=== PATIENT | male | born 1935 | race Caucasian/White ===

== ENCOUNTER 2017-06-23 17:55 | Inpatient (IN) | payer OTHER, MEDICARE ==
--- NOTE | 2017-06-23 18:01 | EDPHY ---
HPI/HX/ROS/PE/MDM Narrative: CHIEF COMPLAINT: Low back pain, worsening dementia HISTORY OF PRESENT ILLNESS: The patient is an 81 y/o male with a history of probable dementia and type 2 diabetes complaining of worsening back pain, onset 1 month ago. In the last month his dementia has also progressed where he becomes more aggressive or violent. notes that he has good days and bad days. His appetite has also decreased in the last month. Per his , he was complaining of back pain all afternoon. He slipped on the stairs today, but was not complaining of any acute pain after the slip. He states "nothing is going on" and he is not in pain. No history of herniated discs. Takes Zyprexa and Zoloft for agitation. REVIEW OF SYSTEMS: Unobtainable from patient secondary to dementia. reports decreased appetite , no fever or vomiting. PAST MEDICAL HISTORY: Dementia, type 2 diabetes (on Metformin) SOCIAL HISTORY: at bedside, lives in [place], retired VITAL SIGNS: Reviewed by me GENERAL: Confused, labile, unable to follow simple commands consistently. Unable to provide a history. Well-developed, well-nourished, in no respiratory distress. HEENT: Atraumatic. Eyes: No icterus, no injection. Mouth: moist mucous membranes. No erythema or lesions. Neck: supple with no adenopathy. No meningismus. LUNGS: Clear to auscultation bilaterally, no wheezes, rhonchi or rales. CARDIAC: Regular rate and rhythm, no rubs, murmurs or gallops. ABDOMEN: Soft, nontender, nondistended, bowel sounds normal. BACK: No CVA tenderness. Erythema and early developing pressure ulcer over mid lumber vertebrae. EXTREMITIES: No trauma. No edema. Range of motion is normal throughout. NEURO: Alert and oriented to person only, moving all extremities x 4. SKIN: Warm and dry, no rash. PSYCHIATRIC: Intermittently agitated. Portions of this note were transcribed by a ophthalmic medical technician. I personally performed a history, physical exam, medical decision making, and confirmed accuracy of information the transcribed note. ED Course: The patient is an 81 y/o male with a history of dementia and type 2 diabetes presenting with worsening lower back pain and dementia for the past month. During my exam he is intermittently agitated and tearful. Denies any pain. Chest x-ray, lumbar spine x-ray, EKG, and labs ordered. Patient not cooperative with evaluation. Discussed situation at length with ; she is in agreement to provide sedation if needed for labs, testing. 1mg IV Ativan and 5mg PO Zyprexa administered. 1845: 12-LEAD EKG: Please see the full report in [facility]. My interpretation: Sinus rhythm with a rate of 72, LBBB 1909: Head CT ordered. 1929: I reviewed patient's lumbar x-ray, there are some old compression fractures, worse at L1-3, with some spurring. No acute fractures identified by myself. Radiology report pending. 1939: Spoke with Dr. Keller, radiologist, regarding this patient's head CT, there are no acute findings. 1948: Reassessed patient and discussed imaging and laboratory findings with his family. Patients creatinine is elevated and hyaline casts in urine. Suspect acute renal insufficiency. The family is concerned about caring for him at home as his symptoms have worsened over the last month, with increased agitation and lashing out at his today. They fear for her safety as well as the patients safety. Patient will be admitted for further evaluation of his AMS, aggressive behavior , and complaints of back pain. Daughter reports remote history of prostate cancer treated with radiation seeds. May need CT scanning if back pain persists. He will need to be admitted, his family is comfortable with this plan. 1L IV NS administered. 2003: Consulted with hospitalist service, Dr. Pugh accepts admission of this patient. MDM: Diff dx considered included but not limited to infection, cardiac causes, fracture, urinary tract infection, dementia, stroke, intracranial hemorrhage. - Data Points Imaging Results: Imaging Impressions Chest X-Ray 06/23/17 18:22 Impression: Mild density in the left lower lobe. Differential includes early pneumonia versus atelectasis. Head CT 06/23/17 19:09 Impression: Atrophy and microvascular ischemic disease. Findings and recommendations discussed with Bethanie Burr MD at 7:40 PM hour , 06/23/2017. Final report concurs with initial preliminary interpretation. Imaging: Discussed imaging studies w/ backpackers manager Radiologist, I viewed and interpreted images myself Laboratory Results: Laboratory Results 06/23/17 18:30 06/23/17 18:30 03/01/18 03/01/18 03/01/18 19:47 18:30 18:30 WBC 8.28 10^3/uL 10^3/uL (3.80-9.50) RBC 3.96 10^6/uL L 10^6/uL (4.40-6.38) Hgb 12.9 g/dL L g/dL (13.7-17.5) Hct 35.7 % L % (40.0-51.0) MCV 90.2 fL fL (81.5-99.8) MCH 32.6 pg pg (27.9-34.1) MCHC 36.1 g/dL g/dL (32.4-36.7) RDW 12.7 % % (11.5-15.2) Plt Count 228 10^3/uL 10^3/uL (150-400) MPV 9.0 fL fL (8.7-11.7) Neut % (Auto) 65.7 % % (39.3-74.2) Lymph % (Auto) 23.8 % % (15.0-45.0) Major % (Auto) 8.6 % % (4.5-13.0) Eos % (Auto) 1.0 % % (0.6-7.6) Baso % (Auto) 0.5 % % (0.3-1.7) Nucleat RBC Rel Count 0.0 % % (0.0-0.2) Absolute Neuts (auto) 5.45 10^3/uL 10^3/uL (1.70-6.50) Absolute Lymphs (auto) 1.97 10^3/uL 10^3/uL (1.00-3.00) Absolute Monos (auto) 0.71 10^3/uL 10^3/uL (0.30-0.80) Absolute Eos (auto) 0.08 10^3/uL 10^3/uL (0.03-0.40) Absolute Basos (auto) 0.04 10^3/uL 10^3/uL (0.02-0.10) Absolute Nucleated RBC 0.00 10^3/uL 10^3/uL (0-0.01) Immature Gran % 0.4 % % (0.0-1.1) Immature Gran # 0.03 10^3/uL 10^3/uL (0.00-0.10) Sodium 139 mEq/L mEq/L (135-145) Potassium 4.4 mEq/L mEq/L (3.5-5.2) Chloride 105 mEq/L mEq/L (97-110) Carbon Dioxide 19 mEq/l L mEq/l (22-31) Anion Gap 15 mEq/L mEq/L (8-16) BUN 29 mg/dL H mg/dL (7-23) Creatinine 1.5 mg/dL H mg/dL (0.7-1.3) Estimated GFR 45 Glucose 102 mg/dL H mg/dL (70-100) Calcium 10.0 mg/dL mg/dL (8.5-10.4) Total Bilirubin 0.9 mg/dL mg/dL (0.1-1.4) Conjugated Bilirubin 0.4 mg/dL mg/dL (0.0-0.5) Unconjugated Bilirubin 0.5 mg/dL mg/dL (0.0-1.1) AST 36 IU/L IU/L (17-59) ALT 37 IU/L IU/L (21-72) Alkaline Phosphatase 71 IU/L IU/L (38-126) Troponin I < 0.012 ng/mL ng/mL (0.000-0.034) Total Protein 6.8 g/dL g/dL (6.3-8.2) Albumin 4.4 g/dL g/dL (3.5-5.0) Lipase 158 IU/L IU/L (23-300) Urine Color YELLOW Urine Appearance HAZY Urine pH 5.0 (5.0-7.5) Ur Specific [place] 1.024 (1.002-1.030) Urine Protein 1+ H (NEGATIVE) Urine Ketones NEGATIVE (NEGATIVE) Urine Blood NEGATIVE (NEGATIVE) Urine Nitrate NEGATIVE (NEGATIVE) Urine Bilirubin NEGATIVE (NEGATIVE) Urine Urobilinogen 2.0 EU H EU (0.2-1.0) Ur Leukocyte Esterase NEGATIVE (NEGATIVE) Urine RBC 1-3 /hpf /hpf (0-3) Urine WBC 3-5 /hpf H /hpf (0-3) Ur Epithelial Cells TRACE /lpf /lpf (NONE-1+) Hyaline Casts 15-25 /lpf H /lpf (0-1) Urine Mucus 1+ /lpf /lpf (NONE-1+) Urine Glucose NEGATIVE (NEGATIVE) Medications Given: Sodium Chloride (Ns) 1,000 mls @ 75 mls/hr IV CONT HAM Stop: 12/20/17 21:29 Last Admin: 06/23/17 22:07 Dose: 1,000 mls Melatonin (Melatonin) 3 mg PO HS [facility] Stop: 12/20/17 20:59 Last Admin: 06/23/17 22:08 Dose: Not Given Sertraline HCl (Zoloft) 50 mg PO HS [facility] Stop: 12/20/17 20:59 Last Admin: 06/23/17 22:08 Dose: Not Given Discontinued Medications Sodium Chloride (Ns) 1,000 mls @ 0 mls/hr IV ONCE ONE PRN Reason: Wide Open Stop: 06/23/17 20:19 Last Admin: 06/23/17 20:21 Dose: 1,000 mls Lorazepam (Ativan Injection) 1 mg IVP EDNOW ONE Stop: 06/23/17 18:24 Last Admin: 06/23/17 18:30 Dose: 1 mg Olanzapine (Zyprexa Zydis) 5 mg PO EDNOW ONE Stop: 06/23/17 18:24 Last Admin: 06/23/17 18:31 Dose: 5 mg General Time Seen by Provider: 06/23/17 18:00 Initial Vital Signs: Initial Vital Signs Temperature (C) 36.3 C 06/23/17 18:01 Heart Rate 75 06/23/17 18:01 Respiratory Rate 18 06/23/17 18:01 Blood Pressure 120/79 06/23/17 18:01 O2 Sat (%) 93 06/23/17 18:01 O2 Delivery Mode Nasal Cannula O2 (L/minute) 2 Allergies/Adverse Reactions: No Known Allergies Allergy (Verified 06/23/17 20:28) Home Medications: Medication Instructions Recorded Atorvastatin Calcium [Lipitor 10 10 mg PO DAILY 06/23/17 mg (*)] Doxylamine Succinate [Unisom] 25 mg PO HS PRN 06/23/17 Levothyroxine [Synthroid 50 mcg 50 mcg PO DAILY06 06/23/17 (*)] Lisinopril/Hctz 20/12.5MG 1 ea PO DAILY 06/23/17 [Zestoretic/Prinzide 20/12.5MG (*)] Melatonin [Melatonin 3 MG (*)] 3 mg PO HS 06/23/17 OLANZapine [ZyPREXA 2.5 mg (*)] 2.5 mg PO HS 06/23/17 Sertraline HCl [Zoloft 50mg (*)] 50 mg PO HS 06/23/17 metFORMIN HCL [Glucophage 500 mg 750 mg PO BIDMEAL 06/23/17 (*)] Departure - Departure Disposition: [facility] Clinical Impression: Agitation, Renal insufficiency Dementia Qualifiers: Dementia type: unspecified type Dementia behavioral disturbance: without behavioral disturbance Qualified Code(s): F03.90 - Unspecified dementia without behavioral disturbance Back pain Qualifiers: Back pain location: low back pain Chronicity: acute Back pain laterality: unspecified Sciatica presence: without sciatica Qualified Code(s): M54.5 - Low back pain Condition: Fair Report Scribed for: Bethanie Burr Report Scribed by: Marce Walter Date of Report: 06/23/17 Time of Report: 18:01
[2017-06-23] MEDS ORDERED: LORazepam 2 MG/ML INJ IVP ONE (18:23)
[2017-06-23] MEDS ORDERED: OLANZapine DISINTEGR 5 MG TAB PO ONE (18:23)
[2017-06-23 18:36] LABS: PLATELET COUNT 228 10^3/uL (150-400)
--- NOTE | 2017-06-23 18:50 | CPEKG ---
Heart Rate: 72 RR Interval: 833 P-R Interval: 152 QRSD Interval: 142 QT Interval: 444 QTC Interval: 486 P [place]: 42 QRS [place]: -14 T Wave [place]: 120 EKG Severity - ABNORMAL ECG - EKG Impression: SINUS RHYTHM EKG Impression: LEFT BUNDLE BRANCH BLOCK Electronically Signed By: Bethanie Burr 23-Jun-2017 21:22:02
[2017-06-23] MEDS ORDERED: NS 1,000 ML IV ONE (20:18)
[2017-06-23] MEDS ORDERED: OLANZapine 2.5 MG TAB PO SCH (21:00)
[2017-06-23] MEDS ORDERED: traMADol 50 MG TAB PO PRN (21:19)
[2017-06-23] MEDS ORDERED: ONDANSETRON 4 MG/2 ML VIAL IVP PRN (21:20)
[2017-06-23] MEDS ORDERED: ONDANSETRON DISINTEGRATING 4 MG TAB PO PRN (21:20)
[2017-06-23] MEDS ORDERED: NS 1,000 ML IV SCH (21:30)
--- NOTE | 2017-06-23 21:31 | PDGENHP ---
History and Physical - Chief Complaint agitation - History of Present Illness The patient is an 81 y/o male with a history of probable dementia over the past 2 years which has been progressive to the point of increasing agitation and violence over the past month. The patient lives with his at home. She has been unable to take care of his and she reports that he gets violent when he gets agitated and confused. In addition he has a hx of neck and low back pain which appears to have worsened over the past month. Agitation has been an issue in the past and and takes Zyprexa and Zoloft. In the E.D a head CT, lumbar spine did not show acute disease. The lumbar spine did show chronic compression fractures. He was given Zyprexa and Ativan in the E.D. and currently he is sleeping. 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 FmHx: parents are History Information - Allergies/Home Medication List Allergies/Adverse Reactions: No Known Allergies Allergy (Verified 06/23/17 20:28) Home Medications: Atorvastatin Calcium [Lipitor 10 mg (*)] 10 mg PO DAILY 06/23/17 [Last Taken 05/12] Doxylamine Succinate [Unisom] 25 mg PO HS PRN 06/23/17 [Last Taken 06/22/17] Levothyroxine [Synthroid 50 mcg (*)] 50 mcg PO DAILY06 06/23/17 [Last Taken 05/12] Lisinopril/Hctz 20/12.5MG [Zestoretic/Prinzide 20/12.5MG (*)] 1 ea PO DAILY 05/12 [Last Taken 06/23/17] Melatonin [Melatonin 3 MG (*)] 3 mg PO HS 06/23/17 [Last Taken 06/22/17] OLANZapine [ZyPREXA 2.5 mg (*)] 2.5 mg PO HS 06/23/17 [Last Taken 06/22/17] Sertraline HCl [Zoloft 50mg (*)] 50 mg PO HS 06/23/17 [Last Taken 06/22/17] metFORMIN HCL [Glucophage 500 mg (*)] 750 mg PO BIDMEAL 06/23/17 [Last Taken 05/12] I have personally reviewed and updated: medical history, social history - Social History Smoking Status: Former smoker Review of Systems Review of Systems: Physical Exam Physical Exam: Temp Pulse Resp BP Pulse Ox 36.6 C 55 L 16 109/66 100 06/23/17 21:10 06/23/17 21:10 06/23/17 21:10 06/23/17 21:10 06/23/17 21:10 O2 (L/minute) 2 Constitutional: no apparent distress Eyes: PERRL, EOMI Ears, Nose, Mouth, Throat: dry mucous membranes Cardiovascular: regular rate and rhythym, No edema Respiratory: no respiratory distress, no rales or rhonchi Gastrointestinal: normoactive bowel sounds, soft, non-tender abdomen Skin: warm Lymph, Heme, Immunologic: No no cervical LAD Lab Data & Imaging Review 06/23/17 18:30 06/23/17 18:30 WBC 8.28 10^3/uL (3.80-9.50) 06/23/17 18:30 RBC 3.96 10^6/uL (4.40-6.38) L 06/23/17 18:30 Hgb 12.9 g/dL (13.7-17.5) L 06/23/17 18:30 Hct 35.7 % (40.0-51.0) L 06/23/17 18:30 MCV 90.2 fL (81.5-99.8) 06/23/17 18:30 MCH 32.6 pg (27.9-34.1) 06/23/17 18:30 MCHC 36.1 g/dL (32.4-36.7) 06/23/17 18:30 RDW 12.7 % (11.5-15.2) 06/23/17 18:30 Plt Count 228 10^3/uL (150-400) 06/23/17 18:30 MPV 9.0 fL (8.7-11.7) 06/23/17 18:30 Neut % (Auto) 65.7 % (39.3-74.2) 06/23/17 18:30 Lymph % (Auto) 23.8 % (15.0-45.0) 06/23/17 18:30 [place] % (Auto) 8.6 % (4.5-13.0) 06/23/17 18:30 Eos % (Auto) 1.0 % (0.6-7.6) 06/23/17 18:30 Baso % (Auto) 0.5 % (0.3-1.7) 06/23/17 18:30 Nucleat RBC Rel Count 0.0 % (0.0-0.2) 06/23/17 18:30 Absolute Neuts (auto) 5.45 10^3/uL (1.70-6.50) 06/23/17 18:30 Absolute Lymphs (auto) 1.97 10^3/uL (1.00-3.00) 06/23/17 18:30 Absolute Monos (auto) 0.71 10^3/uL (0.30-0.80) 06/23/17 18:30 Absolute Eos (auto) 0.08 10^3/uL (0.03-0.40) 06/23/17 18:30 Absolute Basos (auto) 0.04 10^3/uL (0.02-0.10) 06/23/17 18:30 Absolute Nucleated RBC 0.00 10^3/uL (0-0.01) 06/23/17 18:30 Immature Gran % 0.4 % (0.0-1.1) 06/23/17 18:30 Immature Gran # 0.03 10^3/uL (0.00-0.10) 06/23/17 18:30 Sodium 139 mEq/L (135-145) 06/23/17 18:30 Potassium 4.4 mEq/L (3.5-5.2) 06/23/17 18:30 Chloride 105 mEq/L (97-110) 06/23/17 18:30 Carbon Dioxide 19 mEq/l (22-31) L 06/23/17 18:30 Anion Gap 15 mEq/L (8-16) 06/23/17 18:30 BUN 29 mg/dL (7-23) H 06/23/17 18:30 Creatinine 1.5 mg/dL (0.7-1.3) H 06/23/17 18:30 Estimated GFR 45 06/23/17 18:30 Glucose 102 mg/dL (70-100) H 06/23/17 18:30 Calcium 10.0 mg/dL (8.5-10.4) 06/23/17 18:30 Total Bilirubin 0.9 mg/dL (0.1-1.4) 06/23/17 18:30 Conjugated Bilirubin 0.4 mg/dL (0.0-0.5) 06/23/17 18:30 Unconjugated Bilirubin 0.5 mg/dL (0.0-1.1) 06/23/17 18:30 AST 36 IU/L (17-59) 06/23/17 18:30 ALT 37 IU/L (21-72) 06/23/17 18:30 Alkaline Phosphatase 71 IU/L (38-126) 06/23/17 18:30 Troponin I < 0.012 ng/mL (0.000-0.034) 06/23/17 18:30 Total Protein 6.8 g/dL (6.3-8.2) 06/23/17 18:30 Albumin 4.4 g/dL (3.5-5.0) 06/23/17 18:30 Lipase 158 IU/L (23-300) 06/23/17 18:30 Urine Color YELLOW 06/23/17 19:47 Urine Appearance HAZY 06/23/17 19:47 Urine pH 5.0 (5.0-7.5) 06/23/17 19:47 Ur Specific [place] 1.024 (1.002-1.030) 06/23/17 19:47 Urine Protein 1+ (NEGATIVE) H 06/23/17 19:47 Urine Ketones NEGATIVE (NEGATIVE) 06/23/17 19:47 Urine Blood NEGATIVE (NEGATIVE) 06/23/17 19:47 Urine Nitrate NEGATIVE (NEGATIVE) 06/23/17 19:47 Urine Bilirubin NEGATIVE (NEGATIVE) 06/23/17 19:47 Urine Urobilinogen 2.0 EU (0.2-1.0) H 06/23/17 19:47 Ur Leukocyte Esterase NEGATIVE (NEGATIVE) 06/23/17 19:47 Urine RBC 1-3 /hpf (0-3) 06/23/17 19:47 Urine WBC 3-5 /hpf (0-3) H 06/23/17 19:47 Ur Epithelial Cells TRACE /lpf (NONE-1+) 06/23/17 19:47 Hyaline Casts 15-25 /lpf (0-1) H 06/23/17 19:47 Urine Mucus 1+ /lpf (NONE-1+) 06/23/17 19:47 Urine Glucose NEGATIVE (NEGATIVE) 06/23/17 19:47 Assessment & Plan Assessment: Agitation (Acute) Back pain (Acute) Dementia (Acute) Renal insufficiency (Acute) HTN Hypothyroidism Plan: -Admission -provide additional IVF -Check TSH -hold Zyprexa tonight -Hold Lisinopril/HCTZ -PT/OT -Pain mgmt -SCD's -DNR, confirmed with family -Will need placement
[2017-06-23] MEDS: MELATONIN 3 MG TAB PO SCH (22:08)
[2017-06-23] MEDS: SERTRALINE HCL 50 MG TAB PO SCH (22:08)
[2017-06-24] MEDS: LEVOTHYROXINE 50 MCG TAB PO SCH (05:47)
[2017-06-24] MEDS: HALOPERIDOL 1 MG TAB PO PRN (05:47)
[2017-06-24 06:24] LABS: PLATELET COUNT 192 10^3/uL (150-400)
[2017-06-24] MEDS: ATORVASTATIN CALCIUM 10 MG TAB PO SCH (13:21)
--- NOTE | 2017-06-24 14:05 | PDMN ---
Medical Necessity Medical necessity: Pt meets IP criteria per MD; est los >2 mn for eval/tx of back pain & progressive dementia w/increasing agitation & violence; pt unable to care for self; admit for further monitoring, med management, IVFs, therapies & dc planning; comorbid advanced age & diabetes per H&P & order 06/23/17
--- NOTE | 2017-06-24 14:43 | HOSPPROG ---
Hospitalist Progress Note Assessment/Plan: 81y male brought to hospital due to agitation and confusion. First encounter, chart reviewed. D/W CM. #Agitation (Acute) -per new -unclear etiol -zyprexa on hold #Back pain (Acute) -no current complaints #Dementia (Acute) -baseline unclear -will need further evaluation -no signs of infection #Renal insufficiency (Acute) -dehydration -responded to iv hydration #HTN -stable -home meds on hold # Hypothyroidism -tsh stable #Dispo -unclear, PT/OT eval -needs further evaluation -unsafe to go home currently -DNR -Will need placement, reviewed with CM Subjective: Up walking. Confused. Objective: Vital Signs Temp Pulse Resp BP Pulse Ox 36.4 C 79 16 117/70 95 06/24/17 12:00 06/24/17 12:00 06/24/17 12:00 06/24/17 12:00 06/24/17 12:00 Laboratory Results 06/24/17 05:46 06/24/17 05:46 06/23/17 06/24/17 06/25/17 05:59 05:59 05:59 Intake Total 780 Output Total 425 Balance 355 - Physical Exam Constitutional: appears nourished, not in pain, chronically ill appearing Eyes: PERRL, anicteric sclera, EOMI Ears, Nose, Mouth, Throat: moist mucous membranes, hearing normal, ears appear normal Cardiovascular: regular rate and rhythym, No JVD, No edema Respiratory: no respiratory distress, no rales or rhonchi, clear to auscultation Gastrointestinal: normoactive bowel sounds, No tenderness, No ascites Skin: warm, normal color, No mottled Musculoskeletal: normal joint ROM, no joint effusions, generalized weakness Neurologic: No AAOx3 Psychiatric: anxious, poor memory, No thought process linear ICD10 Worksheet Patient Problems: Problems Problem Status Onset Dementia Acute Agitation Acute Back pain Acute Renal insufficiency Acute
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
[2017-06-24] MEDS: SERTRALINE HCL 50 MG TAB PO SCH (20:23)
[2017-06-24] MEDS: MELATONIN 3 MG TAB PO SCH (20:23)
[2017-06-24] MEDS: OLANZapine 2.5 MG TAB PO SCH (20:23)
[2017-06-25] MEDS: LEVOTHYROXINE 50 MCG TAB PO SCH (06:52)
[2017-06-25] MEDS: ATORVASTATIN CALCIUM 10 MG TAB PO SCH (08:24)
--- NOTE | 2017-06-25 10:07 | HOSPPROG ---
Hospitalist Progress Note Assessment/Plan: 81y male brought to hospital due to agitation and confusion. D/W CM. #Agitation (Acute) -per new -unclear etiol -zyprexa on hold #Back pain (Acute) -no current complaints #Dementia (Acute) -baseline unclear -will need further evaluation -no signs of infection #Renal insufficiency (Acute) -dehydration -responded to iv hydration #HTN -stable -home meds on hold # Hypothyroidism -tsh stable #Dispo -to [facility] in am -PT/OT -unsafe to go home currently -DNR Subjective: Up walking. Confused. Objective: Vital Signs Temp Pulse Resp BP Pulse Ox 36.3 C 86 14 130/90 H 95 06/25/17 06:50 06/25/17 06:50 06/25/17 06:50 06/25/17 06:50 06/25/17 06:50 Laboratory Results 06/24/17 05:46 06/25/17 07:26 06/24/17 06/25/17 06/26/17 05:59 05:59 05:59 Intake Total 780 500 Output Total 425 Balance 355 500 - Physical Exam Constitutional: appears nourished, chronically ill appearing Eyes: PERRL, anicteric sclera Ears, Nose, Mouth, Throat: moist mucous membranes, hearing normal Cardiovascular: regular rate and rhythym, No JVD Respiratory: no respiratory distress, reduced air movement Gastrointestinal: No tenderness, No ascites Skin: warm, normal color Musculoskeletal: full muscle strength, normal joint ROM Neurologic: No AAOx3 Psychiatric: poor insight, poor judgement, poor memory, No thought process linear ICD10 Worksheet Patient Problems: Problems Problem Status Onset Dementia Acute Agitation Acute Back pain Acute Renal insufficiency Acute
[2017-06-25] MEDS ORDERED: OLANZapine DISINTEGR 5 MG TAB PO ONE (10:19)
[2017-06-25] MEDS: HALOPERIDOL 1 MG TAB PO PRN (14:28)
[2017-06-25] MEDS: metFORMIN HCL 500 MG TAB PO SCH (18:10)
[2017-06-25] MEDS: OLANZapine 2.5 MG TAB PO SCH (21:16)
[2017-06-25] MEDS: SERTRALINE HCL 50 MG TAB PO SCH (21:16)
[2017-06-25] MEDS: MELATONIN 3 MG TAB PO SCH (21:16)
[2017-06-26] MEDS: ACETAMINOPHEN 325 MG TAB PO PRN ×2 (01:06→07:53)
[2017-06-26] MEDS: HALOPERIDOL 1 MG TAB PO PRN (02:00)
[2017-06-26] MEDS: LEVOTHYROXINE 50 MCG TAB PO SCH (03:38)
[2017-06-26] MEDS: ATORVASTATIN CALCIUM 10 MG TAB PO SCH (07:43)
[2017-06-26] MEDS: metFORMIN HCL 500 MG TAB PO SCH (07:53)
[2017-06-26 08:56] VITALS: BP 125/69; PULSE 85; RESP 16; TEMP 97.8; O2SAT 92
--- NOTE | 2017-06-26 09:01 | PDIAF ---
- Diagnosis Diagnosis: AMS Code Status: Do Not Resuscitate - Medication Management Discharge Medications: Medications to Continue on Transfer Atorvastatin Calcium [Lipitor 10 mg (*)] 10 mg PO DAILY 06/23/17 [Last Taken 05/12] Levothyroxine [Synthroid 50 mcg (*)] 50 mcg PO DAILY06 06/23/17 [Last Taken 05/12] Melatonin [Melatonin 3 MG (*)] 3 mg PO HS 06/23/17 [Last Taken 06/22/17] OLANZapine [ZyPREXA 2.5 mg (*)] 2.5 mg PO HS 06/23/17 [Last Taken 06/22/17] Sertraline HCl [Zoloft 50mg (*)] 50 mg PO HS 06/23/17 [Last Taken 06/22/17] metFORMIN HCL [Glucophage 500 mg (*)] 750 mg PO BIDMEAL 06/23/17 [Last Taken 05/12] Acetaminophen [Tylenol 325mg (*)] 650 mg PO Q4HRS PRN tab 06/26/17 [Last Taken Unknown] Haloperidol [Haldol 1 MG (*)] 1 mg PO Q6H PRN tab 06/26/17 [Last Taken Unknown] traMADol [Ultram 50 mg (*)] 25 mg PO Q6HRS PRN tab 06/26/17 [Last Taken Unknown ] Discharge Medications: Refer to the Discharge Home Medication list for PRN reason. PICC Care - Routine: N/A - Orders Services needed: Registered Nurse, Physical Therapy, Occupational Therapy Diet Recommendation: no restrictions on diet - Follow Up Care Current Providers and Referrals: Anant Mejia MD [Primary Care Provider] - As per Instructions
--- NOTE | 2017-06-26 09:48 | ASMTCMCOM ---
CM Note CM Note Notes: Patient medicallly stable for discharge to [facility] this am. Richard Pauer - 3P transportation arranged for 10:30 am and sister can ride with the patient. aware payment their responsibility, attempted to call [facility] 3 times but no answer. Final orders via allscripts.CM available should other needs arise. Date Signed: 06/26/2017 09:47 AM Electronically Signed By:Elena Mclaughlin RN
--- NOTE | 2017-06-26 09:49 | ASMTLACE ---
LACE Length of stay for Answers: 3 days current admission Acuity / Level of Answers: Yes Care: Did the patient have an inpatient admission? Comorbidities - select Answers: Dementia all that apply Diabetes (uncontrolled or controlled) # of Emergency department Answers: 1-2 visits in the last 6 months Score: 11 Date Signed: 06/26/2017 09:49 AM Electronically Signed By:Elena Mclaughlin RN
--- NOTE | 2017-06-26 14:16 | GDS ---
[f rep st] DISCHARGE SUMMARY DISCHARGE DIAGNOSES: 1. Agitation. 2. Confusion. 3. Dementia. 4. Renal insufficiency. 5. Hypertension. 6. Hypothyroidism. STUDIES AND PROCEDURES: 1. CT of the head. 2. Lumbar spine x-ray. PHYSICAL EXAM: GENERAL: The patient is alert. VITAL SIGNS: Afebrile at 36.6, pulse is 85, respira tory rate 16, blood pressure is 125/69. He is saturating 92% on room air. I have seen and evaluated the patient on the day of discharge. HOSPITAL COURSE: The patient is an 81-year-old male who presented to the emergency room with complai nts of confusion. He was evaluated and diagnosed with: 1. Agitation. Patient's agitation has resolved. He is stable. 2. Dementia. Patient's dementia does appear to be severe. His baseline is unclear to me. He has n o signs of infection or other etiology for his acute confusion. 3. Renal insufficiency. This is secondary to dehydration. It has responded to IV fluids and resolv ed. 4. Hypertension. This is stable with no need for medication intervention at this time. 5. Hypothyroidism. His TSH is stable. DISPOSITION: The patient will be discharged to [facility] for further rehabilitation and manage ment. There are no pending studies. DISCHARGE MEDICATIONS: Please refer to EMR form. I have discontinued the patient's lisinopril, as w ell as his Unisom during this hospitalization. FOLLOWUP: With his primary care physician, Dr. Anant Mejia. I reviewed the patient's disposition with Case Management, as well as the nurse. [facility] as well has agreed to accept the patien t for rehabilitation. I spent greater than 35 minutes in the care, coordination, and management of this patient's dispositi on. /[id number]/MODL
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
== END 2017-06-26 10:47 | DRG 884 ==
LOC: OBSVTOIN 20:02 → F3E 20:40
PROVIDERS: ADMIT Family Medicine; ATTEND Family Medicine
DX: F03.91 Unspecified dementia, unspecified severity, with behavioral disturbance (principal); N28.9 Disorder of kidney and ureter, unspecified; E86.0 Dehydration; I10 Essential (primary) hypertension; E03.9 Hypothyroidism, unspecified; G47.00 Insomnia, unspecified; Z79.84 Long term (current) use of oral hypoglycemic drugs
CPT/HCPCS: 96374; 97161-GP; 97165-GO; G8978-GP-CI; G8979-GP-CI; G8987-GO-CL; G8988-GO-CK; J2060

== ENCOUNTER 2017-07-26 13:54 | Inpatient (IN) | payer OTHER, MEDICARE ==
--- NOTE | 2017-07-26 14:34 | EDPHY ---
H & P Time Seen by Provider: 07/26/17 14:29 HPI/ROS: Chief complaint. Dehydrated HPI. 81-year-old male with history of severe dementia is in rate care unit. However she refuses to eat and drink. He refuses take his medication. Refuses take a shower. There has been no fever. No trauma. His family has noticed he has very dry crusted lips. He continues to decline mentally. They are concerned that he will in the memory care unit because he has not been eating or drinking or taking medication. He has been prescribed oral Zyprexa, Zoloft, Haldol however he refuses to take these so he has not been receiving any medication for several days. ROS Constitutional. no fever/chills, no weakness Eyes. no problems with vision ENT. Sores on lips Cardiovascular. no chest pain Respiratory. no shortness of breath, no cough Abdominal. no abdominal pain, no nausea/vomiting, no diarrhea . no problems urinating MS. no calf pain/swelling, no neck/back pain, no joint pain Skin. no rash Lymph. no swollen glands Neuro. Dementia and agitation Past Medical/Surgical History: Left bundle block, dementia, hypothyroid, diabetes Social History: , nonsmoker, no alcohol Smoking Status: Former smoker Physical Exam: General Appearance: Agitated well-developed male with stable vital signs. Eyes: Pupils equal and round no pallor or injection. ENT, Mouth: Mucous membranes are moist. Respiratory: There are no retractions, lungs are clear to auscultation. Cardiovascular: Regular rate and rhythm. Gastrointestinal: Abdomen is soft and nontender, no masses, bowel sounds normal. Neurological: Awake and alert, sensory and motor exams grossly normal. Skin: Warm and dry, no rashes. Musculoskeletal: Neck is supple nontender. Extremities symmetrical, full range of motion. Toe amputation left foot Psychiatric: Patient is oriented to person. He is agitated. Constitutional: Initial Vital Signs Temperature (C) 36.1 C 07/26/17 13:54 Heart Rate 89 07/26/17 13:54 Respiratory Rate 16 07/26/17 13:54 Blood Pressure 142/78 H 07/26/17 13:54 O2 Sat (%) 99 07/26/17 13:54 O2 Delivery Mode Room Air Allergies/Adverse Reactions: No Known Allergies Allergy (Verified 03/01/18 20:28) Home Medications: Medication Instructions Recorded Atorvastatin Calcium [Lipitor 10 10 mg PO DAILY 06/23/17 mg (*)] Levothyroxine [Synthroid 50 mcg 50 mcg PO DAILY06 06/23/17 (*)] Sertraline HCl [Zoloft 50mg (*)] 50 mg PO DAILY18 06/23/17 LORazepam [Ativan (*)] 0.5 mg PO TID 07/26/17 QUEtiapine FUMARATE [Seroquel 100 100 mg PO HS 07/26/17 mg (*)] QUEtiapine FUMARATE [Seroquel 50 50 mg PO BID AT 7AM AND 3PM 07/26/17 mg (*)] metFORMIN HCL [Glucophage 500 mg 750 mg PO BID 07/26/17 (*)] Medical Decision Making - Diagnostics Imaging Results: Imaging Impressions Chest X-Ray 07/26/17 14:48 Impression: No evidence for acute cardiopulmonary abnormality. Procedures: Soft 4 point restraints as the patient has been trying to strike staff and climb out of bed. Family is present Zyprexa and Ativan intramuscularly IV normal saline after sedation ED Course/Re-evaluation: Re-evaluation patient is much more common relax. IV is started. He is given a L of saline. Last 2 evaluations including just now at 5:55 p.m. No family is present to discussed laboratory evaluation, treatment plan including recommendation for admission. I consulted discussed case Dr. Nieves, hospitalist, who agrees to the admission Family does come back to the room and I have discussed the laboratory evaluation treatment plan with the 2 daughters who are was not. We discussed treatment plan including recommendation for admission. They expressed understanding and agreement Differential Diagnosis: It appears the patient's dementia has progressed to the point of is refusing to eat drink. Somewhat paranoid and violent. Severe dehydration as well as electrolyte abnormalities. Patient has an elevated troponin as well. - Data Points Laboratory Results: Laboratory Results 07/26/17 16:21 07/26/17 16:21 07/26/17 07/26/17 16:21 16:21 WBC 11.00 10^3/uL H 10^3/uL (3.80-9.50) RBC 4.27 10^6/uL L 10^6/uL (4.40-6.38) Hgb 13.6 g/dL L g/dL (13.7-17.5) Hct 40.2 % % (40.0-51.0) MCV 94.1 fL fL (81.5-99.8) MCH 31.9 pg pg (27.9-34.1) MCHC 33.8 g/dL g/dL (32.4-36.7) RDW 13.2 % % (11.5-15.2) Plt Count 223 10^3/uL 10^3/uL (150-400) MPV 9.9 fL fL (8.7-11.7) Neut % (Auto) 83.0 % H % (39.3-74.2) Lymph % (Auto) 8.1 % L % (15.0-45.0) Maverick % (Auto) 8.4 % % (4.5-13.0) Eos % (Auto) 0.0 % L % (0.6-7.6) Baso % (Auto) 0.1 % L % (0.3-1.7) Nucleat RBC Rel Count 0.0 % % (0.0-0.2) Absolute Neuts (auto) 9.14 10^3/uL H 10^3/uL (1.70-6.50) Absolute Lymphs (auto) 0.89 10^3/uL L 10^3/uL (1.00-3.00) Absolute Monos (auto) 0.92 10^3/uL H 10^3/uL (0.30-0.80) Absolute Eos (auto) 0.00 10^3/uL L 10^3/uL (0.03-0.40) Absolute Basos (auto) 0.01 10^3/uL L 10^3/uL (0.02-0.10) Absolute Nucleated RBC 0.00 10^3/uL 10^3/uL (0-0.01) Immature Gran % 0.4 % % (0.0-1.1) Immature Gran # 0.04 10^3/uL 10^3/uL (0.00-0.10) Sodium 155 mEq/L H mEq/L (135-145) Potassium 4.0 mEq/L mEq/L (3.5-5.2) Chloride 116 mEq/L H mEq/L (97-110) Carbon Dioxide 20 mEq/l L mEq/l (22-31) Anion Gap 19 mEq/L H mEq/L (8-16) BUN 109 mg/dL H* mg/dL (7-23) Creatinine 2.3 mg/dL H mg/dL (0.7-1.3) Estimated GFR 27 Glucose 167 mg/dL H mg/dL (70-100) Calcium 9.7 mg/dL mg/dL (8.5-10.4) Troponin I 0.062 ng/mL H ng/mL (0.000-0.034) Medications Given: Discontinued Medications Sodium Chloride (Ns) 1,000 mls @ 0 mls/hr IV EDNOW ONE; Wide Open PRN Reason: Protocol Stop: 07/26/17 14:48 Last Admin: 07/26/17 14:59 Dose: 1,000 mls Lorazepam (Ativan Injection) 1 mg IVP EDNOW ONE Stop: 07/26/17 14:48 Last Admin: 07/26/17 15:02 Dose: 1 mg Lorazepam (Ativan Injection) 1 mg IVP EDNOW ONE Stop: 07/26/17 18:11 Last Admin: 07/26/17 18:11 Dose: 1 mg Olanzapine (Zyprexa Im Injection) 5 mg IM EDNOW ONE Stop: 07/26/17 14:49 Last Admin: 07/26/17 15:02 Dose: 5 mg Departure - Departure Disposition: [facility] Acute Clinical Impression: Dehydration, Elevated troponin Dementia Qualifiers: Dementia type: unspecified type Condition: Fair
[2017-07-26] MEDS ORDERED: LORazepam 2 MG/ML INJ IVP ONE ×2 (14:47→18:10)
[2017-07-26] MEDS ORDERED: NS 1,000 ML IV ONE (14:47)
[2017-07-26] MEDS ORDERED: OLANZapine 10 MG/2 ML VIAL IM ONE (14:48)
[2017-07-26 16:33] LABS: PLATELET COUNT 223 10^3/uL (150-400)
--- NOTE | 2017-07-26 18:00 | ASMTCMCOM ---
CM Note CM Note Notes: Pt presented to the ED via EMS from [facility]. Pt was being aggressive with staff, reportedly refusing meds, not eating/drinking/sleeping/bathing for the past 10 days much at all either. Pt's Yoko Moody (h: [phone], c: [phone]), daughter Juanis ([phone]) and pt's niece Rosalind ([phone]) were at bedside. Spoke with them re: patient and they stated that patient was living with Yoko Moody in a private residence up until he was admitted here 06/23/17 for dehydration, discharged to [facility] 06/26/17 but family ultimately did not have patient stay at and took pt home w/caregivers to assist with care. * See 06/26/17 Case Management Discharge Summary for additional background information [facility]", ([phone]); spoke with [facility] Coordinator/Unit Alesia Valdez, and Unit PLIER WORKERKathleen. They confirmed that patient has been refusing meds, not wanting to eat,drink or sleep and "walks around, paces all day." They feel patient needs a skilled memory care unit such as at [facility] or [facility]. Spoke w/Yoko Moody and dtr Juanis and they said they were not impressed with [facility] and have heard "not so good" things about [facility]. Juanis mentioned they are still considering having Yoko Moody move closer to her near [place] so they are interested in skilled MCU options near there, [place], [place], [facility], or [place], etc. We discussed that Juanis look into possible options around there and if she has time, to go visit the facilities. Pt's PCP is Dr. Jewel Ji ); this CM called and notified her office of pt's admission. Exact DC needs unknown but anticipate SNF w/ skilled memory care unity placement. CM to follow. Date Signed: 07/26/2017 05:59 PM Electronically Signed By:Mary Hurley RN
--- NOTE | 2017-07-26 18:01 | CPEKG ---
Heart Rate: 82 RR Interval: 732 P-R Interval: 152 QRSD Interval: 148 QT Interval: 440 QTC Interval: 514 P Cromwell: 66 QRS Cromwell: 16 T Wave Cromwell: 194 EKG Severity - ABNORMAL ECG - EKG Impression: SINUS RHYTHM EKG Impression: LEFT BUNDLE BRANCH BLOCK Electronically Signed By: Mason Dailey 26-Jul-2017 21:07:13
[2017-07-26] MEDS ORDERED: LORazepam 2 MG/ML INJ ONE (18:07)
[2017-07-26] MEDS ORDERED: HALOPERIDOL LACT 5 MG/ML INJ IVP PRN (19:53)
[2017-07-26] MEDS ORDERED: ACETAMINOPHEN 650 MG SUPP PR PRN (19:53)
[2017-07-26] MEDS ORDERED: D50W 25 GM/50 ML SYR IVP PRN (20:24)
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
[2017-07-26] MEDS: D5W 1,000 ML IV SCH (22:10)
[2017-07-27] MEDS: HEPARIN 5,000 UNIT/0.5 ML SYR SC SCH ×4 (00:25→21:03)
[2017-07-27] MEDS ORDERED: OLANZapine 10 MG/2 ML VIAL IM ONE (01:38)
[2017-07-27 04:30] LABS: PLATELET COUNT 207 10^3/uL (150-400)
[2017-07-27] MEDS ORDERED: INSULIN LISPRO 100 UNIT/ML SC SCH (08:00)
[2017-07-27] MEDS: D5W 1,000 ML IV SCH (08:57)
--- NOTE | 2017-07-27 10:02 | HOSPPROG ---
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 * Uncertain if bladder retention or other issues are driving his worsening behavior issues before coming here - acute renal failure from dehydration * Improving so far with hydration but not at baseline -hypernatremia from dehydration -acute dehydration appears from decreased oral intake * Unclear if the decrease in oral intake was from progression of dementia, discomfort from bladder problems, addition of medications, moved to the memory care unit, or other -elevated troponins are most likely related to his renal function and demand ischemia from his acute illness, doubt very much that there is an acute cardiac issue here. However would also consider rhabdomyolysis potentially from his statin or from other cause At this point there are numerous issues driving his acute change and these do include hyponatremia, dehydration, renal failure, and bladder retention. Another issue is that the patient has been receiving 3 times daily prescribed doses of Ativan. It is unclear to me at the moment how long he has been using Ativan or how often he actually got all 3 have his doses daily at home or at the memory care unit. This medicine certainly could aggravate his symptoms. There could also be a potential for withdrawal if he had been taking it for a long time 3 times daily and suddenly was unable to take at or unwilling to take it for whatever reason. He apparently started taking a neuroleptic as he moved to the memory care unit and things worsen for him medically in the memory care unit, unclear whether the medication was partly causative for that or not. PLANS: -continue IV hydration -will attempt to do a straight catheterization to empty his bladder right now and see if that helps some; if that does help then will need to see how we can keep his bladder better drained. Adding Flomax might help and he may need intermittent straight catheterization, doubt he would tolerate a Pat cath -follow electrolytes closely with sodium levels still needing improvement, still higher than his admission level -follow renal function closely -he will not be able to take anything orally safely at this time but as soon as he is able will see if we can get some food and medications and him -for the moment will hold off on any further Ativan, however will try and review with the family how long he had been taking that and how often -will use p.r.n. Neuroleptics only as necessary to protect patient and staff for the moment, decide further how much of that medicine will should be used if any over time -will check CPK to make sure he does not have a rhabdomyolysis or statin induced muscle injury -will need to discuss further with family as they arrive here, apparently a palliative care discussion has been scheduled for today SUBJECTIVE: Patient currently not really interacting, not speaking and so I cannot assess symptoms Per nursing staff he has been remained fairly agitated through the night. He has not been receiving any of his oral medicines here so far, as he would not be able to swallow them safely. He did receive some Ativan yesterday intravenously in the ER, and had altogether 2 doses of Zyprexa, receiving probably about the same amount of medicine in total for both benzodiazepine and neuroleptic that he would have received typically orally at home. Unclear to me how long he has been prescribed the Ativan at home. 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: Exam: Awake but with eyes closed almost the entire visit I spent with him; clearly very agitated looks uncomfortable hard to tell if this is physical or psychological discomfort, markedly increased psychomotor activity, does not respond to anything I say to him or to my examining him, no tremor, no evidence of focal weakness, I do not believe he is at all oriented at this time skin warm dry color ok no evidence of any concerning wounds or infection resps not labored lungs clear BSs heart regular but mildly tachycardic abd soft nondistended unable to assess for tenderness but does not appear tender at least he does not respond to my palpation, bowel sounds present limbs warm, no edema I asked the nurses to do a bladder scan of his urinary bladder and he has approximately 570 mL urine in his bladder at this time iv site ok Laboratory data: Some improvement in his creatinine, sodium remains high in fact higher than his admission sodium Troponin is unchanged White blood cell count remains high and actually has increased I reviewed his chest x-ray image from yesterday and I agree that this shows no evidence of any infection or other acute abnormality, no cardiac changes Objective: Vital Signs Temp Pulse Resp BP Pulse Ox 36.8 C 100 20 132/80 H 100 07/27/17 08:49 07/27/17 08:49 07/27/17 08:49 07/27/17 08:49 07/27/17 08:49 Laboratory Results 07/27/17 04:21 07/27/17 04:21 07/26/17 07/27/17 07/28/17 06:59 06:59 06:59 Intake Total 1783 Balance 1783 - Time Spent With Patient Time Spent with Patient: greater than 35 minutes Time Spent with Patient: Greater than 35 minutes spent on this patients care, greater than 50% of time spent counseling, educating, and coordinating care regarding the above mentioned plan. ICD10 Worksheet Patient Problems: Problems Problem Status Onset Dehydration Acute Dementia Acute Elevated troponin Acute Agitation Acute Back pain Acute Renal insufficiency Acute
[2017-07-27] MEDS: 1/2 NS 1,000 ML IV SCH ×2 (10:27→22:36)
--- NOTE | 2017-07-27 11:24 | PDMN ---
Medical Necessity Medical necessity: est los>2mn for HANANE, hypernatremia, metabolic acidosis, and end-stage dementia w/profound volume depletion r/t minimal oral intake for several days; admit for IV hydration, and palliative consult; comorbid DM, hypothyroidism, and back pain; per order and h&P 07/26/17
[2017-07-27 13:32] LABS: CREATINE KINASE 826 IU/L (0-224)
--- NOTE | 2017-07-27 16:37 | ASMTCMCOM ---
CM Note CM Note Notes: Palliative bi consultant Tamika quiroz with pt's family today. Pt was admitted from [facility] where, per family, he had declined in the five days he was there. Hi and dtr would like to see if pt returns to baseline. If he does, they would like info on alternative memory care facilities. If he does not, they would want him to have hospice at a facility where they would pay for extermination supervisor care. CM will continue to follow. Date Signed: 07/27/2017 04:36 PM Electronically Signed By:Erin Singh LCSW
[2017-07-28 05:03] LABS: PLATELET COUNT 203 10^3/uL (150-400)
[2017-07-28] MEDS: HEPARIN 5,000 UNIT/0.5 ML SYR SC SCH ×3 (05:04→23:27)
--- NOTE | 2017-07-28 13:13 | HOSPPROG ---
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 I suspect this is still a major component of his encephalopathy in terms of causation -acute dehydration appears from decreased oral intake * He was not hydrating himself due to changes and behavioral issues related to his dementia, ongoing IV hydration here -acute rhabdomyolysis, * suspect this may have been an ischemic type injury caused by his dehydration; less likely caused by statin, no obvious physical injury seen on exam so far -elevated hepatic transaminases and bilirubin, mild * This could also have been ischemic liver change from his dehydration, but would consider possibilities of gallbladder disease or other causes -elevated troponins are due to rhabdomyolysis and not of clinical concern at this point -urinary retention which is very likely chronic and may be very stable * No improvement in his mentation, agitation, or appearance of discomfort with straight catheterization voiding of bladder so far PLANS: -continue IV hydration -follow electrolytes closely with sodium levels still needing improvement, -follow renal function closely -he will not be able to take anything orally safely at this time but as soon as he is able will see if we can get some food and medications and him -his family will be coming in today and I will be having a discussion with them about his condition and prognosis, and care choices, and I will be able to get more information from them about previous medications and other details of his picture as he progressed to this illness SUBJECTIVE: Patient currently not really interacting, not speaking and so I cannot assess symptoms directly However he does continue to look uncomfortable to me but I am unable to determine whether this is a physical or psychological discomfort OBJECTIVE Vitals reviewed: All stable without fever Exam: He remains fairly agitated, squirming and kicking in the bed, but also remains with eyes closed and not communicating in any way in terms of any verbal output or seeming to recognize anything we say to him. Does not make any eye contact with family or staff or me skin warm dry color ok no evidence of any concerning wounds or infection resps not labored lungs clear BSs heart regular but mildly tachycardic abd soft nondistended unable to assess for tenderness but does not appear tender at least he does not respond to my palpation, bowel sounds present limbs warm, no edema iv site ok Laboratory data: Creatinine continues to slowly improve, at his baseline is unclear. Sodium still remains fairly high at 156 Liver enzymes and bilirubin were mildly elevated CPKs elevated greater than 800 with negative MB which is likely the cause of his minimal elevation of troponin Objective: Vital Signs Temp Pulse Resp BP Pulse Ox 36.9 C 92 18 143/92 H 100 07/28/17 07:27 07/28/17 07:27 07/28/17 07:27 07/28/17 07:27 07/28/17 07:27 Laboratory Results 07/28/17 04:54 07/28/17 04:54 07/27/17 07/28/17 07/29/17 06:59 06:59 06:59 Intake Total 1783 1745 Output Total 525 Balance 1783 1220 - Time Spent With Patient Time Spent with Patient: greater than 35 minutes Time Spent with Patient: Greater than 35 minutes spent on this patients care, greater than 50% of time spent counseling, educating, and coordinating care regarding the above mentioned plan. ICD10 Worksheet Patient Problems: Problems Problem Status Onset Dehydration Acute Dementia Acute Elevated troponin Acute Agitation Acute Back pain Acute Renal insufficiency Acute
[2017-07-28] MEDS: morphINE 10 MG/0.5 ML UDSYR PO PRN ×2 (13:54→16:17)
--- NOTE | 2017-07-28 15:24 | ASMTCMCOM ---
CM Note CM Note Notes: Spoke with pt's Yoko Moody and dtr Kathleen ([phone]) about pt's DC plan. Both feel that pt would need SNF over Assisted Living. This would be private pay and pt may also have hospice. Sent referral to [facility]. [facility] in admissions, felt that pt would be a good fit. They will have a pvt room starting Tuesday. Dtr and will tour on Tuesday. CM to follow. Date Signed: 07/28/2017 03:24 PM Electronically Signed By:Erin Singh LCSW
[2017-07-28] MEDS: ZIPRASIDONE MESYLATE 20 MG VIAL IM PRN (18:35)
--- NOTE | 2017-07-28 18:49 | HOSPPROG ---
Hospitalist Progress Note Assessment/Plan: I did meet with the patient his and daughter at the bedside today and we had a very long discussion over his acute medical issues, the uncertain Ts in terms of what is causing all of his presenting pictures, prognosis and various treatment options ranging from full on aggressive care with no limits, less aggressive care with certain limits, or completely palliative approach at this time. At this point they are preferring that we proceed with continued attempts at hydration, management of acute symptoms that would include pain and anxiety, and ongoing investigation to see if there might be any infection that we could treat with antibiotics or other easily fixable issues. They would not want any aggressive procedures such as surgeries or other invasive measures. They understand that he may or may not improve. They also understand that even if he does improve will probably not quite get back to his baseline but due to his advancing dementia will still be at risk for having the same kind of episode or other acute medical illnesses happen, and the probably would happen with some frequency going forward. Therefore they are ready to consider the possibilities of palliative care if he either does not get better or gets better now but has future episodes. Will have ongoing palliative discussions with them during this hospital stay. At this time will try some pain medicines see if that helps settle things for him, if not we may need to try some neural epic or even benzodiazepine which would be my least preferred of these medicines. Will need to trying get an IV back in and see if we can continue hydration for him. Greater than 45 min was spent with the family today reviewing all of these issues and answering their questions. This is in addition to the visits I had clinically for the patient at the bedside detailed earlier. Objective: Vital Signs Temp Pulse Resp BP Pulse Ox 36.9 C 92 18 143/92 H 100 07/28/17 07:27 07/28/17 07:27 07/28/17 07:27 07/28/17 07:27 07/28/17 07:27 Laboratory Results 07/28/17 04:54 07/28/17 04:54 07/27/17 07/28/17 07/29/17 06:59 06:59 06:59 Intake Total 1783 1742 Output Total 525 Balance 1783 1220 ICD10 Worksheet Patient Problems: Problems Problem Status Onset Dehydration Acute Dementia Acute Elevated troponin Acute Agitation Acute Back pain Acute Renal insufficiency Acute
[2017-07-29] MEDS: 1/2 NS 1,000 ML IV SCH (01:21)
[2017-07-29] MEDS: ZIPRASIDONE MESYLATE 20 MG VIAL IM PRN (04:51)
[2017-07-29] MEDS: HEPARIN 5,000 UNIT/0.5 ML SYR SC SCH ×3 (05:25→21:11)
[2017-07-29 05:52] LABS: PLATELET COUNT 175 10^3/uL (150-400)
--- NOTE | 2017-07-29 11:25 | HOSPPROG ---
Hospitalist Progress Note Assessment/Plan: I did meet with the patient his and daughter at the bedside 07/28 and we had a very long discussion over his acute medical issues, the uncertain Ts in terms of what is causing all of his presenting pictures, prognosis and various treatment options ranging from full on aggressive care with no limits, less aggressive care with certain limits, or completely palliative approach at this time. At this point they are preferring that we proceed with continued attempts at hydration, management of acute symptoms that would include pain and anxiety, and ongoing investigation to see if there might be any infection that we could treat with antibiotics or other easily fixable issues. They would not want any aggressive procedures such as surgeries or other invasive measures. They understand that he may or may not improve. They also understand that even if he does improve will probably not quite get back to his baseline but due to his advancing dementia will still be at risk for having the same kind of episode or other acute medical illnesses happen, and the probably would happen with some frequency going forward. Therefore they are ready to consider the possibilities of palliative care if he either does not get better or gets better now but has future episodes. Will have ongoing palliative discussions with them during this hospital stay. 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 Notably there was a prolonged period where we could not get an IV in after he pulled out yesterday and his sodium did go up last night likely related to that. -acute dehydration appears from decreased oral intake * He was not hydrating himself due to changes and behavioral issues related to his dementia, ongoing IV hydration here -acute rhabdomyolysis, * suspect this may have been an ischemic type injury caused by his dehydration; less likely caused by statin, no obvious physical injury seen on exam so far -elevated hepatic transaminases and bilirubin, mild * This could also have been ischemic liver change from his dehydration, but would consider possibilities of gallbladder disease or other causes * Will attempt to get an ultrasound today if he will cooperate -elevated troponins are due to rhabdomyolysis and not of clinical concern at this point -urinary retention which is very likely chronic and may be very stable * No improvement in his mentation, agitation, or appearance of discomfort with straight catheterization voiding of bladder so far * Will need to continue to watch his bladder volumes and may need intermittent straight caths PLANS: -continue IV hydration, will increase the rate of IV fluids at this time -follow electrolytes closely with sodium levels still needing improvement; repeat ordered for this afternoon -follow renal function closely but this seems well stabilized -he will not be able to take anything orally safely at this time but if/when he is able will see if we can get some food and medications and him SUBJECTIVE: Patient currently not really interacting, not speaking and so I cannot assess symptoms directly Remains agitated with eyes closed, again hard to rule out pain but he did not seem to respond to Roxanol yesterday OBJECTIVE Vitals reviewed: All stable without fever Exam: He remains fairly agitated, still some squirming and kicking in the bed, remains with eyes closed and not communicating in any way in terms of any verbal output or response to examination or anything we say to him. Does not make any eye contact with family or staff or me skin warm dry color ok no evidence of any concerning wounds or infection resps not labored lungs clear BSs heart regular abd soft nondistended unable to assess for tenderness but does not appear tender at least he does not respond to my palpation, bowel sounds present limbs warm, no edema iv site ok Laboratory data: C creatinine back to his baseline of 1 Sodium remains elevated, actually increased last night probably due to a prolonged period where we could not had keep an IV in him yesterday BUN remains elevated but improved Objective: Vital Signs Temp Pulse Resp BP Pulse Ox 36.7 C 96 16 126/98 H 100 07/29/17 07:45 07/29/17 07:45 07/29/17 07:45 07/29/17 07:45 07/29/17 07:45 Laboratory Results 07/29/17 05:40 07/29/17 08:49 0407/29/17 07/30/17 06:59 06:59 06:59 Intake Total 1745 1112 Output Total 525 Balance 1220 1112 ICD10 Worksheet Patient Problems: Problems Problem Status Onset Dehydration Acute Dementia Acute Elevated troponin Acute Agitation Acute Back pain Acute Renal insufficiency Acute
[2017-07-29] MEDS: HALOPERIDOL LACT 5 MG/ML INJ IVP PRN ×2 (12:01→22:21)
[2017-07-29] MEDS: D5W 1,000 ML IV SCH ×2 (15:35→21:07)
[2017-07-30] MEDS: D5W 1,000 ML IV SCH (02:11)
[2017-07-30] MEDS: HEPARIN 5,000 UNIT/0.5 ML SYR SC SCH ×3 (06:19→22:10)
[2017-07-30] MEDS ORDERED: SCOPOLAMINE HYDROBROMIDE 1 MG/3 DAYS PATCH TD SCH (12:45)
[2017-07-30] MEDS ORDERED: NS 1,000 ML IV ONE ×2 (13:25→17:00)
--- NOTE | 2017-07-30 13:55 | HOSPPROG ---
Hospitalist Progress Note Assessment/Plan: # acute wtvgjuhmhqmzci-vadzdknqhmqgqt-iofaojebd complicated by underlying cognitive deficit No meaningful improvement overnight patient remains quite agitated with intermittent somnolence I have low suspicion for reversible causes of encephalopathy beyond the electrolyte abnormalities we are actively correcting - p.r.n. Restraints for safety - starting low-dose IV Ativan as the patient is typically on three times daily benzodiazepines at home - continue reorientation environmental support # hypernatremia-secondary to poor access of fluids in the home sodium 162-> 147 with hypotonic fluids Patient's self guided p.o. Intake remains very poor - continue hypotonic fluid replacement # acute kidney injury secondary to dehydration - creatinine 2.3-> 1.0- oxygen saturations 95% on room air - Continue IV fluids # elevated liver function tests- suspect related to above- ultrasound abdomen( personally reviewed) does not show concerning causes for bumped LFT - supportive care - recheck in a.m. # indeterminate troponins- EKG(personally reviewed and interpreted) left bundle branch block without acute changes - suspect related to the stress of acute presentation and acute kidney injury - no additional workup at this time # urinary retention acute- continue p.r.n. Straight cath # advanced dementia with aggressive behavior- patient continues to require intermittent restraints and intensive nursing care - not taking p.o. so has not taken home benzodiazepine or antipsychotics - restart low-dose benzodiazepine - consider this itis dissolvable olanzapine if issues this evening # prophylaxis Lovenox # diet taking poor p.o. # disposition greater than 2 midnights as the patient requires high-level nursing care for safety will need case management and family cooperation for disposition plan I have discussed the case with the RN-providing aggressive section support for secretion management and behavioral support Subjective: agitated overnight Objective: Vital Signs Temp Pulse Resp BP Pulse Ox 36.3 C 78 20 89/64 L 95 07/30/17 11:03 07/30/17 11:03 07/30/17 11:03 07/30/17 11:03 07/30/17 11:03 Laboratory Results 07/29/17 05:40 07/30/17 05:11 07/29/17 07/30/17 07/31/17 05:59 05:59 05:59 Intake Total 400 4165 Output Total 50 Balance 400 4165 -50 - Physical Exam Constitutional: chronically ill appearing Eyes: anicteric sclera Ears, Nose, Mouth, Throat: dry mucous membranes Cardiovascular: regular rate and rhythym Respiratory: no respiratory distress Gastrointestinal: normoactive bowel sounds Genitourinary: no bladder fullness Skin: warm Musculoskeletal: No asymmetric calves Neurologic: No AAOx3 Psychiatric: encephalopathic Lymph, Heme, Immunologic: no cervical LAD ICD10 Worksheet Patient Problems: Problems Problem Status Onset Dehydration Acute Dementia Acute Elevated troponin Acute Agitation Acute Back pain Acute Renal insufficiency Acute
[2017-07-30] MEDS: LORazepam 2 MG/ML INJ IVP SCH ×2 (15:19→22:58)
--- NOTE | 2017-07-30 18:52 | ASMTCMCOM ---
CM Note CM Note Notes: Reviewed chart, spoke with KIMBERLY Garsia regarding discharge plan of care, pt's progress. Per Sun, pt will need a Hospice consult on Tuesday07/31/17 after 11:00 to further discuss options. Family feels they are unable to care for pt. CM to also meet with family to discuss SNF options, if appropriate - family had previously wanted to look at private pay options. [facility] had previously denied pt. CM to arrange Hospice consult in AM and will continue to follow for emotional support/placement needs. Current Discharge Plan: To be determined Date Signed: 07/30/2017 06:52 PM Electronically Signed By:Rosemarie Pride RN
[2017-07-30] MEDS: D5W 1/2 NS 1,000 ML IV SCH (22:47)
[2017-07-31] MEDS: D5W 1/2 NS 1,000 ML IV SCH (03:50)
[2017-07-31] MEDS: HEPARIN 5,000 UNIT/0.5 ML SYR SC SCH ×3 (06:32→22:58)
[2017-07-31] MEDS: LORazepam 1 MG/0.5 ML UDSYR PO PRN ×3 (10:57→19:30)
[2017-07-31] MEDS: LORazepam 2 MG/ML INJ IVP SCH (11:31)
--- NOTE | 2017-07-31 15:30 | HOSPPROG ---
Hospitalist Progress Note Assessment/Plan: # acute uokmwmpgmqtkmh-vrmpngvcfwvjrp-tfzwxtnsl complicated by underlying cognitive deficit No meaningful improvement overnight patient remains quite agitated with intermittent somnolence I have low suspicion for reversible causes of encephalopathy beyond the electrolyte abnormalities we are actively correcting - p.r.n. Restraints for safety - cont low-dose IV Ativan as the patient is typically on three times daily benzodiazepines at home - continue reorientation environmental support - consulting Hospice # hypernatremia-secondary to poor access of fluids in the home sodium 162-> 140 with hypotonic fluids Patient's self guided p.o. Intake remains very poor - dc hypotonic fluids # acute kidney injury secondary to dehydration - creatinine 2.3-> 1.0- oxygen saturations 95% on room air - Continue IV fluids # elevated liver function tests- suspect related to above- ultrasound abdomen( personally reviewed) does not show concerning causes for bumped LFT - supportive care - recheck in a.m. # indeterminate troponins- EKG(personally reviewed and interpreted) left bundle branch block without acute changes - suspect related to the stress of acute presentation and acute kidney injury - no additional workup at this time # urinary retention acute- continue p.r.n. Straight cath # advanced dementia with aggressive behavior- patient continues to require intermittent restraints and intensive nursing care - not taking p.o. so has not taken home benzodiazepine or antipsychotics - restart low-dose benzodiazepine - consider dissolvable olanzapine if issues this evening # prophylaxis Lovenox # diet taking poor p.o. # disposition greater than 2 midnights as the patient requires high-level nursing care for safety will need case management and family cooperation for disposition plan I have discussed the case with the CM - plan for dc to SNF with hospice tomorrow Subjective: more settled overnight Objective: Vital Signs Temp Pulse Resp BP Pulse Ox 36.8 C 64 18 102/71 98 07/31/17 12:00 07/31/17 12:00 07/31/17 12:00 07/31/17 12:00 07/31/17 12:00 Laboratory Results 07/29/17 05:40 07/31/17 04:56 07/30/17 07/31/17 08/01/17 05:59 05:59 05:59 Intake Total 4165 5225 Output Total 125 Balance 4165 5100 - Physical Exam Constitutional: chronically ill appearing Eyes: anicteric sclera Ears, Nose, Mouth, Throat: dry mucous membranes Cardiovascular: regular rate and rhythym Respiratory: no respiratory distress, no rales or rhonchi Gastrointestinal: normoactive bowel sounds Genitourinary: no bladder fullness Skin: warm Musculoskeletal: No asymmetric calves Neurologic: No AAOx3 Psychiatric: No interacting appropriately Lymph, Heme, Immunologic: no cervical LAD ICD10 Worksheet Patient Problems: Problems Problem Status Onset Dehydration Acute Dementia Acute Elevated troponin Acute Agitation Acute Back pain Acute Renal insufficiency Acute
--- NOTE | 2017-07-31 15:47 | ASMTCMCOM ---
CM Note CM Note Notes: Spoke with pt's Yoko Moody and daughter Winsome regarding hospice options - [facility] will be here at 5pm today to meet with them and provide information regarding their services. Family toured [facility] today and have chosen a private room for pt. Due to his decline he does not need Memory Care at this time. Dacia from [facility] [phone] confirmed this and will have his clinical info reviewed in the morning by her team. Dr Joseph notified pt hopefully will be able to be admitted there tomorrow after their clinical review. Date Signed: 07/31/2017 03:47 PM Electronically Signed By:MARU Iraheta
[2017-07-31] MEDS ORDERED: HALOPERIDOL LACT 5 MG/ML INJ IVP PRN (19:10)
--- NOTE | 2017-07-31 19:27 | HOSPPROG ---
Hospitalist Progress Note Assessment/Plan: Nurse requests that I talk to patient's family. Have decided to go to hospice tomorrow. They would like IV fluids overnight. However he is quite agitated and would need significant sedation for IV placement. Discussed the difference of goals of care of hospice. I do not believe IV fluids overnight will be helpful nor would change his course. There are significant risks of sedation and thus would probably not go ahead with IV fluids. The seem to be in agreement but was concerned about his dry mouth. Decided to give ice chips and sips of water if he needed it. I am going to discontinue scopolamine for now as he is not in the active stage of dying. Objective: Vital Signs Temp Pulse Resp BP Pulse Ox 36.8 C 64 18 102/71 98 07/31/17 12:00 07/31/17 12:00 07/31/17 12:00 07/31/17 12:00 07/31/17 12:00 Laboratory Results 07/29/17 05:40 07/31/17 04:56 07/30/17 07/31/17 08/01/17 05:59 05:59 05:59 Intake Total 4165 5225 Output Total 125 3 Balance 4165 5100 -3 ICD10 Worksheet Patient Problems: Problems Problem Status Onset Dehydration Acute Dementia Acute Elevated troponin Acute Agitation Acute Back pain Acute Renal insufficiency Acute
[2017-07-31] MEDS: OLANZapine DISINTEGR 5 MG TAB PO PRN (20:30)
[2017-07-31] MEDS: morphINE 10 MG/0.5 ML UDSYR PO PRN (22:57)
[2017-08-01] MEDS: HEPARIN 5,000 UNIT/0.5 ML SYR SC SCH ×2 (06:09→15:36)
[2017-08-01 07:54] VITALS: BP 115/69
[2017-08-01] MEDS: LORazepam 1 MG/0.5 ML UDSYR PO PRN ×3 (08:43→16:19)
[2017-08-01] MEDS: morphINE 10 MG/0.5 ML UDSYR PO PRN (09:34)
[2017-08-01] MEDS: OLANZapine DISINTEGR 5 MG TAB PO PRN (10:15)
--- NOTE | 2017-08-01 13:15 | PDIAF ---
- Diagnosis Diagnosis: dementia and hypernatremia Code Status: Do Not Resuscitate - Medication Management Discharge Medications: Medications to Continue on Transfer Acetaminophen [Tylenol Rectal] 650 mg DE Q4HRS PRN supp 08/01/17 [Last Taken Unknown] LORazepam [Lorazepam Intensol] 0.25 mg PO Q4 PRN #1 btl 08/01/17 [Last Taken Unknown] morphINE [Roxanol 10 mg/0.5 ml oral soln (*)] 5 mg PO Q2HRS PRN udsyr 08/01/17 [Last Taken Unknown] Discharge Medications: Refer to the Discharge Home Medication list for PRN reason. - Orders Services needed: Registered Nurse Diet Recommendation: no restrictions on diet Diet Texture: Regular Texture Diet Additional: hospice eval and treat - Follow Up Care Current Providers and Referrals: Patient,NotPresent [Unknown] - As per Instructions
--- NOTE | 2017-08-01 16:52 | GDS ---
[f rep st] DISCHARGE SUMMARY DISCHARGE DIAGNOSES: Include: 1. Severe hyponatremia. 2. Acute kidney injury secondary to dehydration. 3. Acute encephalopathy, thought multifactorial. 4. Advanced dementia. HISTORY OF PRESENT ILLNESS: This is an 81-year-old male who presents on 07/26/2017, with confusion a nd electrolyte abnormalities. For details of patient's initial presentation, please see the history and physical dated 07/26/2017. CONSULTATIVE SERVICES ON THIS PATIENT: None. PROCEDURES: None. HOSPITAL COURSE BY ISSUE: 1. Acute encephalopathy, thought secondary to multiple factors including underlying cognitive defici ts with dementia and acute severe electrolyte abnormalities. Patient was admitted and had his serum sodium and acute kidney injury aggressively treated with fluid resuscitation. Over the course of the first 72 hours, the patient's electrolytes and renal function were returned to normal levels and the patient's cognitive interaction did not meaningfully improve. He did not interact in ADLs, remained intermittently aggressive and encephalopathic. Patient was seen by outpatient hospice care and the decision was made to transition to the care center with [facility]. 2. Severe hyponatremia. Patient presented with elevated serum sodiums peaking at 162. On day of di sposition, his sodium is normalized to 140 with aggressive fluid repletion. 3. Acute kidney injury. Patient presented with a creatinine of 2.3. On the day of disposition, cre atinine is 0.8. The patient will not be discharged on supplemental IV fluids instead with hospice ba sed comfort care. 4. Advanced dementia with aggressive behavior. Patient did exhibit this behavior throughout his sta y. He was intermittently treated with very low-dose Ativan with good response. He will be discharge d with p.r.n. Ativan and morphine Roxanol as needed at discharge. MEDICATIONS AT THE TIME OF TRANSFER: Please reference the med rec printed on 08/01/2017. FOLLOWUP APPOINTMENTS: Include with [facility]. PENDING STUDIES: At the time of this dictation are none. TIME SPENT: I spent greater than 30 minutes in the planning and coordination of this care. /[id number]/MODL
--- NOTE | 2017-08-01 21:08 | ASMTCMCOM ---
CM Note CM Note Notes: Discussed with MD and RN. Patient's family still unsure about d/c to [facility] versus [facility]. [facility] concerned about their ability to manage patient at this time. Family would like to speak with hospitalist today before making final decision. Care Center will likely have a bed availalbe this afternoon. Will contact Ayleen at [facility] when more info available #[phone]. Update: Pt's family decided on [facility]. Ayleen, from [facility], onsite to assist with dc. Transport arranged. Dc paperwork faxed; confirmed received. Pt's family agreeable to dc poc. Date Signed: 08/01/2017 09:07 PM Electronically Signed By:Tamika Espinoza RN
--- NOTE | 2017-08-01 21:17 | ASDISCHSUM ---
Discharge Information Plan Status:Hospice-Inpatient Medically Cleared to Leave: Discharge Date:08/01/2017 04:28 PM D/C Disposition:Hospice Facility ADT D/C Disposition:Hospice Facility Projected Discharge Date:08/01/2017 11:00 AM Transportation at D/C:ALS/BLS Discharge Delay Reason: Follow-Up Date:08/01/2017 11:00 AM Discharge Slot: Final Diagnosis: Placement Information Referral Type:*Mcfp/SNF Referral ID:[id number] Provider Name: Address 1: Phone Number: Address 2: Fax Number: City: Selection Factors: State: Referral Type:*Hospice Referral ID:[id number] Provider Name:[facility] Address 1:[address] Address 2: City:[place] Selection Factors: State:[place] Patient Contact Information Contact Name:VAISHALI Relationship: Address:[address] Work Phone: City:[place] Alternate Phone: State/Zip Code:[place] [address] Email: Financial Information Financial Class:Medicare Primary Plan Desc:MEDICARE INPATIENT Primary Plan Number:[id number] Secondary Plan Desc:AARP/MDR SUPPLEMENT Secondary Plan Number:[id number] Assessment Information [facility] CM Progress Note CM Note CM Note Notes: Pt presented to the ED via EMS from [facility]. Pt was being aggressive with staff, reportedly refusing meds, not eating/drinking/sleeping/bathing for the past 10 days much at all either. Pt's Yoko Moody (h: [phone], c: [phone]), daughter Juanis ([phone]) and pt's niece Rosalind ([phone]) were at bedside. Spoke with them re: patient and they stated that patient was living with Yoko Moody in a private residence up until he was admitted here 06/23/17 for dehydration, discharged to [facility] 06/26/17 but family ultimately did not have patient stay at and took pt home w/caregivers to assist with care. * See 06/26/17 Case Management Discharge Summary for additional background information [facility] ([phone]); spoke with [facility] Coordinator/Unit Alesia Valdez, and Unit PAINT PREPARERKathleen. They confirmed that patient has been refusing meds, not wanting to eat,drink or sleep and "walks around, paces all day." They feel patient needs a skilled memory care unit such as at [facility] or [facility]. Spoke w/Yoko Moody and dtr Juanis and they said they were not impressed with [facility] and have heard "not so good" things about [facility]. Juanis mentioned they are still considering having Yoko Moody move closer to her near [place] so they are interested in skilled [facility] options near there, [place], [place], [facility], or [facility], etc. We discussed that Juanis look into possible options around there and if she has time, to go visit the facilities. Pt's PCP is Dr. Jewel Ji ); this CM called and notified her office of pt's admission. Exact DC needs unknown but anticipate SNF w/ skilled memory care unity placement. CM to follow. Date Signed: 07/26/2017 05:59 PM Electronically Signed By:Mary Hurley RN LACE LACE Length of stay for Answers: 7-13 days current admission Acuity / Level of Answers: Yes Care: Did the patient have an inpatient admission? Comorbidities - select Answers: Cerebrovascular disease all that apply (CVA, TIA, aneurysms, vasc ular dementia) Dementia Diabetes (uncontrolled or controlled) Mild liver or renal disease # of Emergency department Answers: 1-2 visits in the last 6 months Score: 16 Date Signed: 08/01/2017 09:15 PM Electronically Signed By:Tamika Espinoza RN [facility] CM Progress Note CM Note CM Note Notes: Palliative systems management consultant Tamika quiroz with pt's family today. Pt was admitted from [facility] where, per family, he had declined in the five days he was there. Hi and dtr would like to see if pt returns to baseline. If he does, they would like info on alternative memory care facilities. If he does not, they would want him to have hospice at a facility where they would pay for care home care. CM will continue to follow. Date Signed: 07/27/2017 04:36 PM Electronically Signed By:Erin Singh LCSW [facility] CM Progress Note CM Note CM Note Notes: Spoke with pt's Yoko Moody and dtr Kathleen ([phone]) about pt's DC plan. Both feel that pt would need SNF over Assisted Living. This would be private pay and pt may also have hospice. Sent referral to [facility] in admissions, felt that pt would be a good fit. They will have a pvt room starting Tuesday. Dtr and will tour on Tuesday. CM to follow. Date Signed: 07/28/2017 03:24 PM Electronically Signed By:Erin McCorrison, SUPERVISOR [employer] [facility] Progress Note CM Note CM Note Notes: Reviewed chart, spoke with KIMBERLY Garsia regarding discharge plan of care, pt's progress. Per Sun, pt will need a Hospice consult on Tuesday07/31/17 after 11:00 to further discuss options. Family feels they are unable to care for pt. CM to also meet with family to discuss SNF options, if appropriate - family had previously wanted to look at private pay options. [facility] had previously denied pt. CM to arrange Hospice consult in AM and will continue to follow for emotional support/placement needs. Current Discharge Plan: To be determined Date Signed: 07/30/2017 06:52 PM Electronically Signed By:Rosemarie Pride RN [facility] Progress Note CM Note CM Note Notes: Spoke with pt's Yoko Moody and daughter Winsome regarding hospice options - [facility] will be here at 5pm today to meet with them and provide information regarding their services. Family toured [facility] today and have chosen a private room for pt. Due to his decline he does not need Memory Care at this time. Dacia from [facility] [phone] confirmed this and will have his clinical info reviewed in the morning by her team. Dr Joseph notified pt hopefully will be able to be admitted there tomorrow after their clinical review. Date Signed: 07/31/2017 03:47 PM Electronically Signed By:MARU Iraheta [facility] CM Progress Note CM Note CM Note Notes: Discussed with MD and RN. Patient's family still unsure about d/c to [facility] versus [facility]. [facility] concerned about their ability to manage patient at this time. Family would like to speak with hospitalist today before making final decision. Care Center will likely have a bed availalbe this afternoon. Will contact Ayleen at [facility] when more info available #[phone]. Update: Pt's family decided on [facility]. Ayleen, from [facility], onsite to assist with dc. Transport arranged. Dc paperwork faxed; confirmed received. Pt's family agreeable to dc poc. Date Signed: 08/01/2017 09:07 PM Electronically Signed By:Tamika Espinoza RN Intervention Information Intervention Type:Post Acute Communication Date of Service:07/26/2017 06:01 PM Patient Type:Inpatient Staff Member:KIMBERLY Hurley, Mary Hours:0.5 Discipline:Training Executive Severity: Comment:[facility] discussed care. PCP notification.
[2017-08-02] MEDS ORDERED: PATCH REMOVAL 1 EA PATCH TD SCH (12:39)
== END 2017-08-01 16:28 | disposition hospice, home (50) | DRG 682 ==
LOC: EDUNIT# → F1N 19:07 → UNDODISIN 08-01 10:09
PROVIDERS: ADMIT Hospitalist; ATTEND Hospitalist
DX: N17.9 Acute kidney failure, unspecified (principal); G93.40 Encephalopathy, unspecified; E87.0 Hyperosmolality and hypernatremia; M62.82 Rhabdomyolysis; R33.9 Retention of urine, unspecified; E11.9 Type 2 diabetes mellitus without complications; E03.9 Hypothyroidism, unspecified; G47.00 Insomnia, unspecified; Z89.429 Acquired absence of other toe(s), unspecified side; Z66 Do not resuscitate; Z87.891 Personal history of nicotine dependence
CPT/HCPCS: 96374; J1630; J1644; J2060; J3486